=== PATIENT | male | born 1990 | race Asian ===

== ENCOUNTER 2018-01-21 15:03 | Emergency (ER) | payer BC, OTHER ==
[~2018-01-21] VITALS: Ht 165.1 cm; Wt 86.2 kg
[2018-01-21] MEDS ORDERED: OMEG1CAP74 PO (16:07)
[2018-01-21] MEDS ORDERED: OMEG1CAP GT (16:07)
[2018-01-21] MEDS ORDERED: NITROGLYCERIN OINT 1 GM PACKET TP ONE (17:15)
[2018-01-21 17:46] LABS: BASOPHILS # (AUTO) 0.1 K/uL (0.0-8.0); BASOPHILS % (AUTO) 0.6 % (0.0-2.0); EOSINOPHILS # (AUTO) 0.1 K/uL (0.0-0.7); EOSINOPHILS % (AUTO) 1.1 % (0.0-7.0); HEMATOCRIT 41.8 % (36.7-47.1); HEMOGLOBIN 14.2 g/dL (12.5-16.3); LYMPHOCYTES # (AUTO) 2.5 K/uL (20.0-40.0); LYMPHOCYTES % (AUTO) 29.5 % (20.5-51.5); MEAN CORPUSCULAR HEMOGLOBIN 31.1 uug (23.8-33.4); MEAN CORPUSCULAR HGB CONC 34 g/dL (32.5-36.3); MEAN CORPUSCULAR VOLUME 91.4 fL (73.0-96.2); MONOCYTES # (AUTO) 0.6 K/uL (2.0-10.0); MONOCYTES % (AUTO) 7.1 % (0.0-11.0); NEUTROPHILS # (AUTO) 5.1 K/uL (1.8-8.9); NEUTROPHILS % (AUTO) 61.7 % (38.5-71.5); PLATELET COUNT (AUTO) 311 K/uL (152-348); RED BLOOD CELL COUNT(AUTO) 4.57 MIL/uL (4.06-5.63); WHITE BLOOD COUNT (AUTO) 8.3 K/uL (3.6-10.2)
--- NOTE | 2018-01-21 17:57 | NUR ---
back to room post head ct
[2018-01-21 18:01] LABS: BILIRUBIN,DIRECT 0.1 mg/dL (0.0-0.2); BILIRUBIN,TOTAL 0.4 mg/dL (0.2-1.0); CREATININE 1.1 mg/dL (0.6-1.3); POTASSIUM 4.2 mmol/L (3.5-5.1); TOTAL PROTEIN, SERUM 7.8 g/dL (6.4-8.2)
--- NOTE | 2018-01-21 18:30 | NUR ---
consent signed for HEAD CTA.
[2018-01-21] MEDS ORDERED: NORMAL SALINE FLUSH 10 ML DISP.SYRIN ONE (18:31)
[2018-01-21] MEDS ORDERED: IV NORMAL SALINE 250 ML IV ONE (18:31)
[2018-01-21] MEDS ORDERED: IOHEXOL 350 100 ML INFUS..BTL ONE (18:31)
[2018-01-21] MEDS ORDERED: SWABABLE VALVE TRANSFER SET EA MC ONE (18:31)
[2018-01-21] MEDS ORDERED: diphenhydrAMINE 50 MG/1 ML VIAL ONE (18:39)
[2018-01-21] MEDS ORDERED: METOCLOPRAMIDE HCL 10 MG/2 ML VIAL ONE (18:39)
[2018-01-21] MEDS: IV NORMAL SALINE 1000 ML BAG IV ONE (18:40)
[2018-01-21] MEDS: METOCLOPRAMIDE HCL 10 MG/2 ML VIAL IV ONE (18:40)
[2018-01-21] MEDS: diphenhydrAMINE 50 MG/1 ML VIAL IV ONE (18:40)
--- NOTE | 2018-01-21 18:40 | NUR ---
1 liter IV NS started bolus/ medicated for nausea
--- NOTE | 2018-01-21 19:30 | NUR ---
Report received from Fouzia ELLIS. Patient ambulated to BR without dizziness. Still with mild headache 08/24.
--- NOTE | 2018-01-21 20:48 | NUR ---
Patient discharged to home in stable conditon. Written and verbal after care instructions given. Patient verbalizes understanding of instructions.
[2018-01-21 20:49] VITALS: BP 124/75
== END 2018-01-21 20:40 | disposition home or self-care (01) ==
LOC: ER 15:09
DX: R51 Headache (principal)
CPT/HCPCS: 36415; 70450; 70496; 85025; 85730; A4663; J1200; J2765; J3490; J7030; J7050; Q9967